=== PATIENT | male | born 1940 | race American Indian/Alaskan Native ===

== ENCOUNTER 2017-02-21 10:16 | Observation (INO) ==
[2017-02-21] MEDS ORDERED: SALINE FLUSH 10ml SYRINGE IVF PRN (10:33)
[2017-02-21] MEDS ORDERED: NS 1,000 ML IV ONE (10:33)
--- NOTE | 2017-02-21 10:40 | Emergency Department Report ---
Syncope HPI - General Chief Complaint: Syncope Stated Complaint: Syncope Time Seen by Provider: 02/21/17 10:33 - History of Present Illness HPI narrative: 76-year-old gentleman with syncopal episode while mowing his yard. He thinks he was out there for about an hour, but does not remember passing out and has not know how long he was out. No previous episode of syncope. He felt fine when he went out and he states he feels great now as well. He has very mild headache, and sore neck from falling. No chest pain. No abdominal pain. He was outside a fair amount yesterday without any issue. No new medications. He sees Dr. Urban Hines. He does feel weak right now and a little bit tired. He was brought in by EMS. - Related Data Home Medications Medication Instructions Recorded Confirmed Ascorbic Acid [Vitamin C] 1,000 mg PO DAILY 02/21/17 02/21/17 Aspirin [Adult Low Dose Aspirin EC] 81 mg PO DAILY 02/21/17 02/21/17 Lisinopril [Prinivil] 10 mg PO HS 02/21/17 02/21/17 Meloxicam 7.5 mg PO DAILY 02/21/17 02/21/17 Tamsulosin [Flomax] 0.4 mg PO HS 02/21/17 02/21/17 Previous Rx's Medication Instructions Recorded Amlodipine Besylate [Norvasc] 5 mg PO DAILY #0 02/22/17 Allergies Allergy/AdvReac Type Severity Reaction Status Date / Time No Known Allergies Allergy Verified 02/21/17 10:39 Review of Systems All systems: reviewed and negative except as stated [facility] Patient Stated Medical History Hypertension Yes Medical History Updates: Hypertension Family History: Negative - Social History Smoking status: Former smoker Substance use type: does not use Household members: spouse Physical Exam - Limitations Limitations: no limitations - General General appearance: alert, in no apparent distress - Normal Exams: Head:: Normocephalic without trauma Eyes:: Pupils are PERRLA w/ EOMI, No scleral icterus, irritation, or foreign bodies noted ENMT:: No facial trauma, nasal exudates, pharyngeal erythema, or exudates are noted Dental: No fractured, loose, or missing teeth noted Chest/Respirations:: Clear all engle, with good airflow, and symmetry bilaterally Abdomen:: Bowel sounds positive, soft, non-tender, non-distended, no hepatosplenomegaly, masses or bruits noted Neurological:: Patient is alert, and oriented, cranial nerves, motor/sensory/ cerebellar, exams w/o gross deficits, to observation Psychiatric:: Patient exhibits, appropriate attention, emotion and affect - Cardiovascular Cardiovascular exam: Present: regular rate, normal rhythm, systolic murmur. Absent: rubs, gallop, clicks, JVD Course Vital Signs Pulse Rate 97 02/21/17 10:39 Respiratory Rate 25 H 02/21/17 10:39 Blood Pressure 120/58 02/21/17 10:39 Pulse Oximetry 95 02/21/17 10:39 Temperature 98 F 02/22/17 07:33 Pulse Rate 80 02/22/17 08:00 Respiratory Rate 20 02/22/17 07:33 Blood Pressure 142/73 H 02/22/17 08:06 Pulse Oximetry 94 02/22/17 07:33 Syncope - MDM Narrative Medical decision making narrative: Patient appeared effectively asymptomatic from the fall. Labs are appropriate with normal CBC and CMP. D-dimer was negative and EKG showed no acute changes. CT head was obtained because of loss of consciousness. An 8 mm right-sided subdural hematoma was noted with some midline shift also noted. On review, radiology could not ensure that this was not a progressing bleed, especially in light of the midline shift. This was discussed at length with radiology and with the patient and family. Patient has had a previously diagnosed subdural hematoma in this area which is being watched. However it was only 4 mm in size the last time it was imaged. It was done at outside facility and I do not have access to that record. Discussed this with hospitalist who agreed to place the patient observation overnight and repeat CT in the morning to ensure that there is no continued growth of the bleed and to make sure patient did well symptomatically overnight. Patient is in agreement with this plan. - Medical Records Attestation: I reviewed the patient's medical records. - Lab Data Attestation: I reviewed the patient's lab results. Result diagrams: 02/21/17 10:08 02/22/17 04:31 Lab Results 02/21/17 02/21/17 02/21/17 Range/Units 10:08 10:08 10:42 WBC 6.5 (4.5-11.0) T/MM3 RBC 3.88 L (4.50-5.90) M/MM3 Hgb 13.0 L (13.5-17.5) GM/DL Hct 38.9 L (41-53) % MCV 100.3 H (80-100) UM3 MCH 33.5 (26-34) UUG MCHC 33.4 (31-37) GM/DL RDW Std Deviation 46.1 (36.9-50.2) FL Plt Count 180 (130-400) T/MM3 MPV 11.8 (9.4-12.4) UM3 Neutrophils % (Manual) 72.0 H (33-66) % Band Neutrophils % 1.0 (0-6) % Lymphocytes % (Manual) 21.0 L (23-45) % Monocytes % (Manual) 5.0 (0-9.0) % Eosinophils % (Manual) 1.0 (0-4) % Neutrophils # (Manual) 4.7 (1.8-7.7) T/MM3 Band Neutrophils # 0.1 T/MM3 Lymphocytes # (Manual) 1.4 (1-4.8) T/MM3 Monocytes # (Manual) 0.3 (0-0.8) T/MM3 Eosinophils # (Manual) 0.1 (0-0.5) T/MM3 RBC Morph Comment Normal D-Dimer 178 (0-230) NG/ML Turbidity (0-20) Sodium (134-144) MEQ/L Potassium (3.6-5) MEQ/L Chloride (98-107) MEQ/L Carbon Dioxide (22-30) MEQ/L Anion Gap (5-15) MEQ/L BUN (9-20) MG/DL Creatinine (0.8-1.5) MG/DL GFR Calculation BUN/Creatinine Ratio (6-26) RATIO Glucose (75-110) MG/DL Glucometer 106 (65-110) mg/dL Calculated Osmolality (261-280) MOSM/KG Calcium (8.4-10.2) MG/DL Magnesium (1.6-2.3) MG/DL Total Bilirubin (0.20-1.30) MG/DL Icterus Index (0-7) AST (17-59) U/L ALT (21-72) U/L Alkaline Phosphatase (38-126) U/L Creatine Kinase (55-170) U/L Troponin I (0-0.12) ng/ml B-Natriuretic Peptide (0-175) pg/mL Total Protein (6.3-8.2) G/DL Albumin (3.5-5.0) G/DL Globulin (2.4-3.6) G/DL Albumin/Globulin Ratio (1.1-2.2) RATIO Plasma Lactate (0.6-2.2) MMOL/L Specimen Hemolysis (0-25) Ur Collection Type Urine Color (YELLOW) Urine Clarity Urine pH (5.0-8.0) Ur Specific [place] (1.015-1.025) Urine Protein (NEGATIVE) Urine Glucose (UA) (NEGATIVE) Urine Ketones (NEGATIVE) Urine Occult Blood (NEGATIVE) Urine Nitrate (NEGATIVE) Urine Bilirubin (NEGATIVE) Urine Urobilinogen (NORMAL) EU/DL Ur Leukocyte Esterase (NEGATIVE) Urinalysis Comment 02/21/17 02/21/17 Range/Units 10:48 11:00 WBC (4.5-11.0) T/MM3 RBC (4.50-5.90) M/MM3 Hgb (13.5-17.5) GM/DL Hct (41-53) % MCV (80-100) UM3 MCH (26-34) UUG MCHC (31-37) GM/DL RDW Std Deviation (36.9-50.2) FL Plt Count (130-400) T/MM3 MPV (9.4-12.4) UM3 Neutrophils % (Manual) (33-66) % Band Neutrophils % (0-6) % Lymphocytes % (Manual) (23-45) % Monocytes % (Manual) (0-9.0) % Eosinophils % (Manual) (0-4) % Neutrophils # (Manual) (1.8-7.7) T/MM3 Band Neutrophils # T/MM3 Lymphocytes # (Manual) (1-4.8) T/MM3 Monocytes # (Manual) (0-0.8) T/MM3 Eosinophils # (Manual) (0-0.5) T/MM3 RBC Morph Comment D-Dimer (0-230) NG/ML Turbidity < 20 (0-20) Sodium 141 (134-144) MEQ/L Potassium 4.6 (3.6-5) MEQ/L Chloride 111 H (98-107) MEQ/L Carbon Dioxide 21 L (22-30) MEQ/L Anion Gap 9 (5-15) MEQ/L BUN 29.0 H (9-20) MG/DL Creatinine 1.3 (0.8-1.5) MG/DL GFR Calculation 53 BUN/Creatinine Ratio 22 (6-26) RATIO Glucose 98 (75-110) MG/DL Glucometer (65-110) mg/dL Calculated Osmolality 277 (261-280) MOSM/KG Calcium 8.7 (8.4-10.2) MG/DL Magnesium 2.2 (1.6-2.3) MG/DL Total Bilirubin 0.90 (0.20-1.30) MG/DL Icterus Index < 2 (0-7) AST 20 (17-59) U/L ALT 35 (21-72) U/L Alkaline Phosphatase 79 (38-126) U/L Creatine Kinase 110 (55-170) U/L Troponin I 0.033 (0-0.12) ng/ml B-Natriuretic Peptide 1080 H (0-175) pg/mL Total Protein 6.6 (6.3-8.2) G/DL Albumin 4.0 (3.5-5.0) G/DL Globulin 2.6 (2.4-3.6) G/DL Albumin/Globulin Ratio 1.5 (1.1-2.2) RATIO Plasma Lactate 1.0 (0.6-2.2) MMOL/L Specimen Hemolysis 42 H (0-25) Ur Collection Type Urine, clean catch Urine Color Yellow (YELLOW) Urine Clarity Clear Urine pH 6.0 (5.0-8.0) Ur Specific [place] 1.020 (1.015-1.025) Urine Protein Trace A (NEGATIVE) Urine Glucose (UA) Negative (NEGATIVE) Urine Ketones Negative (NEGATIVE) Urine Occult Blood Negative (NEGATIVE) Urine Nitrate Negative (NEGATIVE) Urine Bilirubin Negative (NEGATIVE) Urine Urobilinogen 0.2 (NORMAL) EU/DL Ur Leukocyte Esterase Negative (NEGATIVE) Urinalysis Comment Microscopic not ind. - Radiology Data Attestation: I reviewed the patient's radiology results. Disposition Clinical Impression: Syncope due to orthostatic hypotension, Subdural hematoma Disposition: To [facility] Condition: Stable Time of Disposition: 14:36 - Seen By: physician
--- NOTE | 2017-02-21 12:01 | CT Scan Report ---
Indication: syncope ,neckpain PROCEDURE: CT cervical spine wo con: Encounter: Initial Comparison: None Technique: Axial CT images through the cervical spine were performed without contrast. Coronal and sagittal reformatted images were also obtained. Automated Exposure Control and Iterative Reconstruction dose reducing techniques were utilized. FINDINGS: The alignment of the cervical spine is straightened. Multilevel degenerative changes are present. Bony neural foraminal stenosis at C4-C5, C5-C6, C6-C7 and C7-T1. There is no evidence of acute fracture or subluxation of the cervical spine. The atlantoaxial articulation, dens, and upper cervical spine demonstrate no subluxation. The paraspinal soft tissues and spinal canal appear unremarkable. IMPRESSION: No acute traumatic abnormality of the cervical spine. .
--- NOTE | 2017-02-21 12:02 | XRay Report ---
INDICATION: syncope PROCEDURE: CHEST 2-VIEWS UPRIGHT (PA & LAT) Encounter: Initial COMPARISON: None FINDINGS: Increased interstitial markings. Linear areas of opacity in a subpleural location bilaterally could represent Sujey B lines due to mild edema. No consolidative pneumonia. No pleural effusion or pneumothorax. Cardiac silhouette is at the upper limits of normal. Mediastinal contours appear normal. No significant skeletal abnormality. Impression: Increased interstitial markings could represent mild pulmonary edema or COPD. .
--- NOTE | 2017-02-21 12:10 | CT Scan Report ---
Indication: CT head with headache PROCEDURE: CT head/brain wo con: Encounter: Initial Comparison: None Technique: Axial CT images through the head were performed without contrast. Iterative Reconstruction dose reducing technique was utilized. FINDINGS: There is a fluid attenuation subdural collection overlying the right cerebral hemisphere measuring up to 8 mm in thickness. This has some mass effect upon the underlying parenchyma and shows 3 mm of leftward midline shift shift. I do not identify definite acute hemorrhage within this collection however. There is mild generalized atrophy. Scattered low-attenuation frontoparietal white matter lesions probably due to microvascular ischemia with old bilateral lacunar infarcts in the basal ganglia. No acute calvarial fracture. Paranasal sinuses are clear. No evidence of acute territorial stroke. Impression: Right-sided subdural collection could represent an acute posttraumatic subdural hygroma or potentially a chronic subdural hygroma/hematoma. Given the evidence of mass effect and midline shift, neurosurgical evaluation is recommended along with short-term follow-up head CT. Results were discussed with the ordering physician at 1205 on February 21, 2017. .
[2017-02-21] MEDS ORDERED: NS 1,000 ML IV SCH (14:00)
[2017-02-21 14:46] VITALS: BMI 27.7
--- NOTE | 2017-02-21 15:24 | History & Physical Report ---
<Hannah Simpson V - Last Filed: 02/21/17 15:29> History of Present Illness Date: 02/21/17 Chief complaint: Syncope HPI: Patient is a 76-year-old male who is brought to the emergency room today for evaluation following a syncopal episode while mowing the lawn today. His event was witnessed by a neighbor, EMS was activated and patient was transported to the ER for further evaluation, treatment. Patient has no recollection of "passing out". However, he was alert and oriented at the time EMS was present. Further evaluation including laboratory studies, CT scans were obtained. The BBC count was found to be 6.5, hemoglobin 13.0, hematocrit 38.9, platelet count 180. Sodium is 141, potassium 4.6, BUN 29, creatinine 1.3, glucose 106. Troponin 0.033, proBNP 1080. Venous lactate was 1.0. D-dimer 178. Urinalysis is unremarkable. 12 lead EKG was sinus rhythm without acute changes. Vital signs are normal. Chest X-ray indicated linear opacity bilaterally likely representing chronic changes. CT of the C-spine revealed no acute trauma. CT scan of the head reveled a fluid collection in the subdural measuring 8mm in size. Patient had a know history of a subdural bleed that had been followed in the outpatient setting. He last had this imaged in August and was told that it was 4 millimeters in size. Given this questionable change in thickness. The hospitalist services were contacted and accepted patient for outpatient admission for further evaluation and treatment Patient is seen on initial examination. He is alert, oriented, however, is hard of hearing. His son is at the bedside to give the majority of his history. He reports that patient did fall PFS Patient Stated Medical History Subdural Hematoma initally 12mm 05/27/16. CT follow up- 07/29/16- right-sided subdural hematoma decreased to 4-5mm Hearing Loss Hypertension Hx of confusion Valvular Heart Disease hx blood infection Hypertension Aortic stenosis Chronic kidney disease Hypercholesterolemia BPH Pulmonary hypertension History of CVA ECHO- January 2017 1. Left ventricle: The cavity size is normal. Hypertrophy is noted. Systolic function is normal. The estimated ejection fraction is 55-65%. There were no regional wall motion abnormalities identified. 2. Left atrium: The atrium is mildly to moderately dilated. 3. Right atrium: The atrium is mildly to moderately dilated. 4. Mitral valve: There is mild regurgitation. 5. Aortic valve: Bicuspid; severely calcified leaflets. There is severe stenosis. There is mild regurgitation. Peak velocity (S): 4.8 m/sec. Mean gradient (S): 55 mm Hg. Valve area (VTI): 0.47 cm. 6. Pulmonic valve: There is moderate regurgitation. Surgical History: Appendectomy Family History: Father of throat cancer in the 1950s - Social History Smoking status: Former smoker Substance use type: does not use Current residence: Apartment/Private Home Social history: PCP Dr Hines Medications Home Medications Medication Instructions Recorded Confirmed Type Amlodipine Besylate [Norvasc] 10 mg PO DAILY 02/21/17 02/21/17 History Ascorbic Acid [Vitamin C] 1,000 mg PO DAILY 02/21/17 02/21/17 History Aspirin [Adult Low Dose Aspirin EC] 81 mg PO DAILY 02/21/17 02/21/17 History Lisinopril [Prinivil] 10 mg PO HS 02/21/17 02/21/17 History Meloxicam 7.5 mg PO DAILY 02/21/17 02/21/17 History Tamsulosin [Flomax] 0.4 mg PO HS 02/21/17 02/21/17 History Allergies Allergy/AdvReac Type Severity Reaction Status Date / Time No Known Allergies Allergy Verified 02/21/17 10:39 Exam Vital Signs: Temperature 97.4 F 02/21/17 14:30 Pulse Rate 83 02/21/17 14:30 Respiratory Rate 16 02/21/17 14:30 Blood Pressure 150/57 H 02/21/17 14:30 Pulse Oximetry 96 02/21/17 14:30 Oxygen Delivery Method Room Air Height: 1.68 m Weight: 78 kg Body Mass Index: 27.7 - Constitutional Present: no acute distress - Routine HEENT Exam Head: Present: normocephalic, atraumatic Eye: Present: EOMI, PERRL - Routine Neck Exam Present: supple, full ROM - Routine Respiratory Exam Present: CTA bilaterally - Routine Cardiovascular Exam Present: RRR, S1, S2, murmur - Routine Abdominal Exam Present: soft, normoactive bowel sounds - Routine Skin Exam Present: intact, dry, warm - Routine Neurological Exam Present: alert, oriented X3, CN II-XII intact, moving all extremities, vision grossly intact, normal speech - Detailed Neurological Exam Neuro motor strength exam: LLE 5/5 (All 4 extremities are equal bilaterally) Cerebellar function: Normal finger to nose Sensory: Normal lower extremity light touch, Normal lower extremity temperature , Normal upper extremity light touch, Normal upper extremity temperature - Detailed Neurological Exam: Coma Scale Coma scale eye opening: spontaneous Coma scale motor response: obeys commands Coma scale verbal response: oriented Coma scale total: 15 - Routine Psychiatric Exam Present: normal affect, normal thought process Results - Labs CBC & Chem 7: 02/21/17 10:08 02/21/17 10:48 Assessment and Plan (1) Subdural fluid collection Current visit: Yes Status: Acute Acute on Chronic. Last imaging was performed on 07/29/16 revealing improvement in chronic right-sided subdural hematoma. At that time it measured approximately 4-5 millimeters. (2) (aortic stenosis) Current visit: Yes Status: Chronic (3) HTN (hypertension) Current visit: Yes Status: Chronic (4) CKD (chronic kidney disease) Current visit: Yes Status: Chronic (5) Pulmonary hypertension Current visit: Yes Status: Chronic (6) Hyperlipidemia Current visit: Yes Status: Chronic (7) History of CVA (cerebrovascular accident) Current visit: Yes Status: Resolved (8) Syncopal episodes Current visit: Yes Status: Acute Resuscitation Status: Full Code Assessment and Plan: Admit patient to outpatient observation under the care of Dr. Ruiz for acute syncopal episode with findings of subdural hematoma. Patient does have a known chronic subdural hematoma has been followed in the outpatient setting under the care of Dr. Hines. Initially it was found in May 2016. At that time it measured 12 millimeters. Imaging was repeated on July 29, 2016 that revealed an improvement in size measuring 4-5 millimeters. At that time there was no mass effect or midline shift. Unfortunately, today upon re-imaging. There is evidence of mass effect along with midline shift. Patient has a normal neurologic exam on admission. Will continue to monitor neuro checks routinely every 2 hours as well as NIH scale evaluation every [address] scan of the brain tomorrow morning at 8 a.m. for reevaluation. Normal saline at 100 ML per hour Monitor patient on cardiac telemetry SCD to bilateral lower extremity for DVT prophylaxis Did have discussion with patient and son regarding if patient's neurologic status did acutely change or deteriorate. He will require immediate transfer to a higher level of care with available neurologic specialist for intervention. Despite this risk patient and son request to stay at [facility] currently. I did review advanced directives and he does wish to be a full code. Further orders, and plan of care discussed with attending, Dr Ruiz - Time spent with patient 25 - 35 minutes Sepsis Assessment - Evaluation Sepsis screening result: No Definite Risk Hospital Course Summary Disclaimer: The visit summary below is not to be considered part of the above Progress Note. Hospital Course: 02/21/17- Admission Admit patient to outpatient observation under the care of Dr. Ruiz for acute syncopal episode with findings of subdural hematoma. Patient does have a known chronic subdural hematoma has been followed in the outpatient setting under the care of Dr. Hines. Initially it was found in May 2016. At that time it measured 12 millimeters. Imaging was repeated on July 29, 2016 that revealed an improvement in size measuring 4-5 millimeters. At that time there was no mass effect or midline shift. Unfortunately, today upon re-imaging. There is evidence of mass effect along with midline shift. Patient has a normal neurologic exam on admission. Will continue to monitor neuro checks routinely every 2 hours as well as NIH scale evaluation every 4 hours. Will plan to repeat CT scan of the brain tomorrow morning, approximately 8 a.m. for comparison. Normal saline at 100 ML per hour Monitor patient on cardiac telemetry SCD to bilateral lower extremity for DVT prophylaxis Did have discussion with patient and son regarding if patient's neurologic status did acutely change or deteriorate. He will require immediate transfer to a higher level of care with available neurologic specialist for intervention. Despite this risk patient and son request to stay at [facility] currently. I did review advanced directives and he does wish to be a full code. Further orders, and plan of care discussed with attending, Dr Ruiz <Paradise Ruiz - Last Filed: 02/21/17 20:20> History of Present Illness Date: 02/21/17 [facility] Patient Stated Medical History Cerebrovascular Accident Yes: possibly Hearing Loss Yes Hypertension Yes Valvular Heart Disease Yes Other Infectious Yes: bacterial blood infection approx 12 yrs ago Exam Vital Signs: Temperature 97.4 F 02/21/17 14:30 Pulse Rate 82 02/21/17 15:16 Respiratory Rate 16 07/07/17 14:30 Blood Pressure 150/57 H 02/21/17 14:30 Pulse Oximetry 96 02/21/17 14:30 Oxygen Delivery Method Room Air Height: 1.68 m Weight: 78 kg Results - Labs CBC & Chem 7: 02/21/17 10:08 02/21/17 10:48 Assessment and Plan (1) Syncopal episodes Current visit: Yes Status: Acute (2) (aortic stenosis) Problem details: Critical , valve area <0.5 cm2 Current visit: Yes Status : Chronic (3) HTN (hypertension) Current visit: Yes Status: Chronic (4) Subdural fluid collection Current visit: Yes Status: Acute (5) CKD (chronic kidney disease) Current visit: Yes Status: Chronic (6) Pulmonary hypertension Current visit: Yes Status: Chronic (7) Hyperlipidemia Current visit: Yes Status: Chronic (8) History of CVA (cerebrovascular accident) Current visit: Yes Status: Resolved Assessment and Plan: I have independently evaluated and examined this patient. I reviewed the chart, the patient's history, and the [employer]'s documented findings as above. We discussed and formulated the assessment and plan as above with additions as below: Mr. Wolfe describes a syncopal episode while mowing his grass early this morning without preceding symptoms. He felt fine and the next thing he is aware of who is laying on the grass. He was found by his neighbor who was also mowing his grass. He's recently been started on Flomax for symptomatically BPH and has only taken it for a couple of days; medication is taken in the evening due to risk of lightheadedness but patient denies lightheadedness or dizziness this morning. He has critical aortic stenosis and has not had prior syncopal events or known arrhythmias. Patient is a delightful elderly male, NAD, fully oriented. Regular cardiac rhythm, minimal systolic murmur audible. Cranial nerves 3-12 intact, motor tone/power normal, sensation intact 4 extremities. EKG reviewed by myself demonstrating LVH and secondary ST/T wave changes. Laboratory data as reviewed above-nonrevealing with respect to syncope. CT head reviewed by myself-fluid collection in the right subdural space consistent with hygroma, no acute blood. Generalized atrophy by my review. Chest x-ray also reviewed by myself demonstrates mild heart failure. Syncope in patient with critical aortic stenosis-worrisome for drop attack or arrhythmia. Continue telemetry. Check troponin in a.m.; discuss further with patient's son when he is available. Check orthostatics due to recent addition of Flomax. May need to discuss further with cardiology. Hygroma present but likely chronic and change seen simply due to different cut the last study. Reassess in a.m. for stability. Outpatient records reviewed, discussed with Dr. Hewitt, CT head/chest x-ray/EKG reviewed by myself, laboratory data reviewed. Hospital Course Summary Disclaimer: The visit summary below is not to be considered part of the above Progress Note.
[2017-02-21] MEDS: NS 1,000 ML IV SCH (18:49)
[2017-02-21] MEDS ORDERED: TAMSULOSIN 0.4 MG CAPSULE PO SCH (22:00)
[2017-02-21] MEDS ORDERED: LISINOPRIL 10 MG PO SCH (22:00)
[2017-02-22 00:17] VITALS: O2SAT 94
[2017-02-22] MEDS: NS 1,000 ML IV SCH (04:27)
[2017-02-22 07:35] VITALS: RESP 20; TEMP 98
[2017-02-22 08:06] VITALS: BP 142/73
[2017-02-22] MEDS ORDERED: ASPIRIN *EC* 81 MG TABLET PO SCH (09:00)
[2017-02-22] MEDS ORDERED: LISINOPRIL 10 MG PO SCH (09:00)
[2017-02-22] MEDS ORDERED: ASCORBIC ACID 500 MG TABLET PO SCH (09:00)
--- NOTE | 2017-02-22 11:11 | Discharge Instructions ---
Discharge Plan - Med Rec/Dispo Referrals/Follow Up: Declan Hines MD [Family Provider] - [place] Instructions: Syncope (DC), Aortic Stenosis (GEN) Additional Instructions: schedule f/u appt with Dr. Orellana for next week due to event passing out. Prescriptions: Continue Lisinopril [Prinivil] 10 mg PO HS Ascorbic Acid [Vitamin C] 1,000 mg PO DAILY Tamsulosin [Flomax] 0.4 mg PO HS Meloxicam 7.5 mg PO DAILY Aspirin [Adult Low Dose Aspirin EC] 81 mg PO DAILY Changed Amlodipine Besylate [Norvasc] 5 mg PO DAILY #0 Discharge Instructions/Outpatient Orders: Final Provider Discharge Instructions Location: Determined By Patient - Disposition 01 Discharged Home, Self-Care
--- NOTE | 2017-02-22 13:36 | Discharge Summary ---
Discharge Information Date of admission: 02/21/17 14:13 <Paradise Ruiz - 02/22/17 21:25> 02/21/17 14:13 <Hannah Simpson V 02/22/17 13:43> Anticipated date of discharge: 02/22/17 <Hannah Simpson V 02/22/17 13:43> Attending Physician: Paradise Ruiz MD <Paradise Ruiz 02/22/17 21:25> Paradise Ruiz MD <Hannah Simpson V 02/22/17 13:43> Primary care physician: Declan Hines MD <Paradise Ruiz 02/22/17 21:25> Declan Hines MD <Hannah Simpson V 02/22/17 13:43> Consults: None <Hannah Simpson V 02/22/17 13:43> - Discharge Diagnosis (1) (aortic stenosis) Problem Details: Critical , valve area <0.5 cm2 Status: Chronic (2) HTN (hypertension) Status: Chronic (3) Subdural fluid collection Status: Acute (4) CKD (chronic kidney disease) Status: Chronic (5) Pulmonary hypertension Status: Chronic (6) Hyperlipidemia Status: Chronic (7) History of CVA (cerebrovascular accident) Status: Resolved (8) Syncopal episodes Status: Acute <TatianaHannah V 02/22/17 13:31> (1) Syncopal episodes Qualifiers: Syncope type: unspecified Qualified Code(s): R55 - Syncope and collapse Problem Details: Possible drop attack Status: Acute (2) (aortic stenosis) Qualifiers: Cardiac valve disease etiology: etiology unspecified Qualified Code(s): I35.0 - Nonrheumatic aortic (valve) stenosis Problem Details: Critical , valve area <0.5 cm2 Status: Chronic (3) HTN (hypertension) Qualifiers: Hypertension type: essential hypertension Qualified Code(s): I10 - Essential (primary) hypertension Status: Chronic (4) Subdural fluid collection Status: Acute (5) CKD (chronic kidney disease) Qualifiers: Chronic kidney disease stage: stage 2 (mild) Qualified Code(s): N18.2 - Chronic kidney disease, stage 2 (mild) Status: Chronic (6) Pulmonary hypertension Status: Chronic (7) Hyperlipidemia Qualifiers: Hyperlipidemia type: mixed hyperlipidemia Qualified Code(s): E78.2 - Mixed hyperlipidemia Status: Chronic <Paradise Ruiz - 02/22/17 21:25> - Procedures Procedures: None <Hannah Simpson V - 02/22/17 13:43> - Laboratory Labs: 02/22/17 04:31 <Paradise Ruiz - 02/22/17 21:25> 02/22/17 04:31 <Hannah Simpson V 02/22/17 13:43> - Microbiology None <Hannah Simpson V 02/22/17 13:43> - Radiology Radiology: 02/21/17- #1- Ct brain- revealed right-sided subdural collection measuring approximately 8 millimeters, acute versus chronic. 02/22/17-#2 CT brain-comparison CT without evidence of significant change from previous day. <Hannah Simpson V 02/22/17 13:43> - Pathology None <Hannah Simpson V 02/22/17 13:43> History of Present Illness HPI: Patient is a 76-year-old male who is brought to the emergency room today for evaluation following a syncopal episode while mowing the lawn today. His event was witnessed by a neighbor, EMS was activated and patient was transported to the ER for further evaluation, treatment. Patient has no recollection of "passing out". However, he was alert and oriented at the time EMS was present. Further evaluation including laboratory studies, CT scans were obtained. The BBC count was found to be 6.5, hemoglobin 13.0, hematocrit 38.9, platelet count 180. Sodium is 141, potassium 4.6, BUN 29, creatinine 1.3, glucose 106. Troponin 0.033, proBNP 1080. Venous lactate was 1.0. D-dimer 178. Urinalysis is unremarkable. 12 lead EKG was sinus rhythm without acute changes. Vital signs are normal. Chest X-ray indicated linear opacity bilaterally likely representing chronic changes. CT of the C-spine revealed no acute trauma. CT scan of the head reveled a fluid collection in the subdural measuring 8mm in size. Patient had a know history of a subdural bleed that had been followed in the outpatient setting. He last had this imaged in August and was told that it was 4 millimeters in size. Given this questionable change in thickness. The hospitalist services were contacted and accepted patient for outpatient admission for further evaluation and treatment Patient is seen on initial examination. He is alert, oriented, however, is hard of hearing. His son is at the bedside to give the majority of his history. He reports that patient did fall <Hannah Simpson V - 02/22/17 13:43> Hospital Course This is a general summary of the patient's hospital course. For more details refer to the complete medical record. <SaraParadise Still - 02/22/17 21:25> This is a general summary of the patient's hospital course. For more details refer to the complete medical record. <Hannah Simpson V - 02/22/17 13:43> Hospital course: I have independently evaluated and examined this patient. I reviewed the chart, the patient's history, and the FORM SETTER HELPER's documented findings as above. We discussed and formulated the assessment and plan as above with additions as below: Mr. Wolfe reports that he is feeling well today. He had no difficulty overnight and denies dizziness this morning. Blood pressure was unremarkable and without orthostatic change. Patient denied chest pain or palpitations and telemetry has been consistently sinus rhythm. Examination reveals patient to be alert and cooperative. Cardiac rhythm is regular with 2/[address] findings reviewed with radiology-no worrisome fluid collection or change compared to yesterday's CT. However I am more concerned about the patient's critical aortic stenosis and development of syncope. Have suggested that patient reduce amlodipine to 5 mg daily although when I spoke with patient's sons they were more interested in discontinuing Flomax and leaving amlodipine at 10 mg daily-I concur that this is very reasonable option if the patient will be agreeable given his symptomatic improvement in nocturia with Flomax. Need to follow-up with Dr. Orellana for reassessment of aortic stenosis stressed. Advised that syncope represents one of the cardinal symptoms seen with advanced . Follow-up planned with cardiology next week if possible. <Sara,Paradise Still - 02/22/17 21:25> Mr Wolfe was admitted patient to outpatient observation under the care of Dr. Ruiz for acute syncopal episode with findings of subdural hematoma. Patient does have a known chronic subdural hematoma has been followed in the outpatient setting under the care of Dr. Hines. Initially it was found in May 2016. At that time it measured 12 millimeters. Imaging was repeated on July 29, 2016 that revealed an improvement in size measuring 4-5 millimeters. At that time there was no mass effect or midline shift. Unfortunately, today upon re-imaging. There is evidence of mass effect along with midline shift. Patient has a normal neurological exam on admission. Will continue to monitor neuro checks routinely every 2 hours as well as NIH scale evaluation every 4 hours. He was monitored on cardiac telemetry for any cardiac changes. CT scan of the brain was repeated this morning 02/22/17 which revealed no significant change from prior study yesterday. This was discussed in detail by attending, Dr. Ruiz and radiologist. Clinically patient remained stable without any neurological or cardiovascular changes. He was seen and examined this morning by Dr. Ruiz. Patient is discharged in the care of his sons. He was instructed to follow-up with his para machine operator Dr. Orellana next week regarding syncopal episode. Only medication change that was made to patient's home medication is a decrease in Norvasc to 5 mg daily. <Hannah Simpson V - 02/22/17 13:43> DVT Prophylaxis: SCD's <Hannah Simpson V - 02/22/17 13:43> Discharge Plan - Med Rec/Dispo Referrals/Follow Up: Declan Hines MD [Family Provider] - <Paradise Ruiz - 02/22/17 21:25> [place] Instructions: Aortic Stenosis (GEN), Syncope (DC) <Paradise Ruiz - 02/22/17 21:25> Additional Instructions: schedule f/u appt with Dr. Orellana for next week due to event passing out. <Paradise Ruiz - 02/22/17 21:25> Prescriptions: Continue Lisinopril [Prinivil] 10 mg PO HS Ascorbic Acid [Vitamin C] 1,000 mg PO DAILY Tamsulosin [Flomax] 0.4 mg PO HS Meloxicam 7.5 mg PO DAILY Aspirin [Adult Low Dose Aspirin EC] 81 mg PO DAILY Changed Amlodipine Besylate [Norvasc] 5 mg PO DAILY #0 <Paradise Ruiz - 02/22 21:25> Discharge Instructions/Outpatient Orders: Final Provider Discharge Instructions Location: Determined By Patient <Paradise Ruiz - 02/22/17 21:25> - Disposition 01 Discharged Home, Self-Care <Paradise Ruiz - 02/22/17 21:25>
[2017-02-22 13:57] VITALS: PULSE 80
--- NOTE | 2017-02-23 10:54 | CT Scan Report ---
Indication: comparison of subdural PROCEDURE: CT head/brain wo con: Encounter: Initial Comparison: February 21, 2017 Technique: Axial CT images through the head were performed without contrast. Iterative Reconstruction dose reducing technique was utilized. FINDINGS: Right-sided subdural fluid attenuation collection is stable in size and appearance. Stable mild leftward midline shift. Ventricles are unchanged. Chronic bilateral basal ganglia lacunar infarcts. No acute intracranial hemorrhage. No acute changes in appearance. No calvarial fracture. The visualized portions of the skull base, midface, and calvarium demonstrate no abnormality. The paranasal sinuses are well aerated and free of significant disease. The tympanic and mastoid cavities appear normal. IMPRESSION: Stable appearance of the small right-sided presumed subdural hygroma. This may be chronic. There is a preliminary report by [facility]. .
== END 2017-02-22 12:07 | disposition home or self-care (01) ==
LOC: ED 10:16 → MED 10:16
PROVIDERS: ADMIT Internal Medicine; ATTEND Internal Medicine